=== PATIENT | male | born 1970 | race Caucasian/White ===

== ENCOUNTER 2018-08-04 03:13 | Inpatient (IN) | payer BC, OTHER ==
[2018-08-04 03:49] LABS: Urine Blood NEGATIVE (NEG); Urine Glucose NEGATIVE (NEG); Urine Protein NEGATIVE (NEG); Urine Specific Gravity 1.015 (1.005-1.030); Urine pH 5.5 (5.0-7.0)
[2018-08-04] MEDS ORDERED: KETOROLAC 30 MG/ML INJ ONE (04:54)
[2018-08-04 05:04] LABS: Absolute Lymphocytes (CBC) 1.5 K/uL (0.7-4.9); Absolute Monocytes 0.5 K/uL (0.1-1.3); Absolute Neutrophil 0.8 K/uL (1.8-8.0); Basophils % 2.2 % (0-1.3); Eosinophils % 8.6 % (0-4.4); Hematocrit 36.6 % (39.6-49.0); Lymphocytes % 46.8 % (15.3-44.8); MCH 31.7 pg (27.0-35.0); MCV 87.4 fL (80-100); MPV 7.6 fL (7.6-11.3); Monocytes % 15.4 % (3.3-12.3); RBC Red Blood Cell Count 4.18 M/uL (4.33-5.43)
[2018-08-04 05:21] LABS: Albumin 3.7 g/dL (3.4-5.0); Alkaline Phosphatase 64 U/L (45-117); BUN Blood Urea Nitrogen 6 mg/dL (7-18); Bicarbonate 26 mmol/L (21-32); Bilirubin Total 0.8 mg/dL (0.2-1.0); Glucose Level 98 mg/dL (74-106); Lipase 172 U/L (73-393); Potassium 3.6 mmol/L (3.5-5.1); Sodium Level 126 mmol/L (136-145)
[2018-08-04 05:22] LABS: ALT/SGPT 319 U/L (12-78); AST/SGOT 448 U/L (15-37)
[2018-08-04] MEDS ORDERED: NA CHLORIDE 0.9% 50 ML IV ONE (05:27)
[2018-08-04] MEDS ORDERED: CEFTRIAXONE 1000 MG/VIAL ONE (05:27)
[2018-08-04] MEDS ORDERED: NA CHLORIDE 0.9% 1,000 ML ONE (07:57)
--- NOTE | 2018-08-04 08:15 | ER ---
Nurse's Notes [facility] Name: Sahil Meehan Age: 48 yrs Sex: Male : 1970 Arrival Date: 08/04/2018 Time: 03:14 Bed 14 Private MD: Diagnosis: Hypo-osmolality and hyponatremia;Flank pain;Alcohol abuse with intoxication;Liver disease, unspecified Presentation: 08/04 03:22 Presenting complaint: Patient states: Sudden right flank pain since this morning. cc3 Transition of care: patient was not received from another setting of care. Onset of symptoms was August 04, 2018. Risk Assessment: Do you want to hurt yourself or someone else? Patient reports no desire to harm self or others. Initial Sepsis Screen: Does the patient meet any 2 criteria? No. Patient's initial sepsis screen is negative. Does the patient have a suspected source of infection? No. Patient's initial sepsis screen is negative. Care prior to arrival: None. 03:22 Method Of Arrival: Ambulatory cc3 03:22 Acuity: HILDA 3 cc3 Historical: - Allergies: 03:22 No Known Allergies; cc3 - Home Meds: 03:22 None [Active]; cc3 - PMHx: 03:22 None; cc3 - PSHx: 03:22 None; cc3 - Immunization history:: Adult Immunizations not up to date. - Social history:: Smoking status: Patient/guardian denies using tobacco, never smoked. - Ebola Screening: : No symptoms or risks identified at this time. Screenin:22 Abuse screen: Denies threats or abuse. Denies injuries from another. Nutritional cc3 screening: No deficits noted. Tuberculosis screening: No symptoms or risk factors identified. Fall Risk Ambulatory Aid- None/Bed Rest/Nurse Assist (0 pts). Gait- Normal/Bed Rest/Wheelchair (0 pts) Mental Status- Oriented to own ability (0 pts). Assessment: 03:22 General: Appears in no apparent distress. uncomfortable, Behavior is cooperative. Pain: cc3 Complains of pain in right lower quadrant and right flank Pain currently is 10 out of 10 on a pain scale. Quality of pain is described as aching, Pain began suddenly. Neuro: Level of Consciousness is awake, alert, obeys commands, Oriented to person, place, time, situation, Appropriate for age. Cardiovascular: Denies chest pain. Respiratory: Airway is patent Respiratory effort is even, unlabored, Respiratory pattern is regular, symmetrical. GI: Abdomen is round non-distended. : No signs and/or symptoms were reported regarding the genitourinary system. EENT: No signs and/or symptoms were reported regarding the EENT system. Derm: No signs and/or symptoms reported regarding the dermatologic system. Musculoskeletal: Circulation, motion, and sensation intact. Range of motion: intact in all extremities. 04:30 Reassessment: Patient appears in no apparent distress at this time. Patient and/or cc3 family updated on plan of care and expected duration. Pain level reassessed. Patient is alert, oriented x 3, equal unlabored respirations, skin warm/dry/pink. 05:53 Reassessment: Patient appears in no apparent distress at this time. Patient and/or cc3 family updated on plan of care and expected duration. Pain level reassessed. Patient is alert, oriented x 3, equal unlabored respirations, skin warm/dry/pink. Patient came back from CT scan department. 06:40 Reassessment: Patient appears in no apparent distress at this time. Patient and/or cc3 family updated on plan of care and expected duration. Pain level reassessed. Patient is alert, oriented x 3, equal unlabored respirations, skin warm/dry/pink. 07:00 Reassessment: Handed over to morning shift for continuity of care. cc3 07:51 Reassessment: Patient appears in no apparent distress at this time. Patient and/or tw2 family updated on plan of care and expected duration. Pain level reassessed. Patient is alert, oriented x 3, equal unlabored respirations, skin warm/dry/pink. 07:52 Reassessment: Dr. Reyes at bedside at this time. tw2 09:58 Reassessment: pt is in xray at this time, unavailable for vs. tw2 Vital Signs: 03:22 BP 133 / 98; Pulse 90; Resp 20; Temp 97.9(O); Pulse Ox 100% on R/A; Weight 81.65 kg cc3 (R); Height 5 ft. 9 in. (175.26 cm) (R); Pain 10/10; 04:15 BP 125 / 83; Pulse 78; Resp 18 S; Pulse Ox 97% on R/A; cc3 05:00 BP 135 / 90; Pulse 71; Resp 18 S; Pulse Ox 99% on R/A; cc3 06:15 BP 153 / 94; Pulse 77; Resp 18 S; Pulse Ox 100% on R/A; Pain 7/10; cc3 07:51 BP 152 / 96; Pulse 80; Resp 17; Pulse Ox 100% on R/A; tw2 03:22 Body Mass Index 26.58 (81.65 kg, 175.26 cm) cc3 ED Course: 03:14 Patient arrived in ED. ds1 03:22 Gardenia Stovall is Primary Nurse. cc3 03:22 Arm band placed on right wrist. cc3 03:22 Patient has correct armband on for positive identification. Placed in gown. Bed in low cc3 position. Call light in reach. Side rails up X 1. Pulse ox on. NIBP on. 03:35 Triage completed. cc3 03:55 Yoni Calderón MD is Attending Physician. ps1 04:40 Inserted saline lock: 20 gauge in right antecubital area, using aseptic technique. cc3 Blood collected. 05:46 CT completed. Patient tolerated procedure well. Patient moved to CT via stretcher. eh Patient moved back from CT. 05:54 CT Abd/Pelvis - W/Contrast In Process Unspecified. EDMS 07:00 Report given to SARMAD Wan. cc3 07:10 Soco Johnston RN is Primary Nurse. tw2 07:39 Attending Physician role handed off by Yoni Calderón MD kdr 07:39 Deonte Reyes MD is Attending Physician. kdr 08:11 Scot Flores DO is Hospitalizing Provider. kdr 09:27 Lab(s) recollected, by me, sent to lab. Urine collected: clean catch specimen, cloudy. gm 09:42 Report received from attempted to call report, was told SARMAD Felton will call me back. tw2 10:12 No provider procedures requiring assistance completed. Patient admitted, IV remains in tw2 place. Administered Medications: 04:45 Drug: TORadol 30 mg Route: IVP; Site: right antecubital; cc3 06:00 Follow up: Response: No adverse reaction; Pain is decreased cc3 05:20 Drug: Rocephin - (cefTRIAXone) 1 grams Route: IVPB; Infused Over: 30 mins; Site: right cc3 antecubital; 06:00 Follow up: Response: No adverse reaction; IV Status: Completed infusion; IV Intake: [id number] 07:50 Drug: NS 0.9% 1000 ml Route: IV; Rate: 1 bolus; Site: right antecubital; tw2 10:13 Follow up: IV Status: Infusion continued upon admission tw2 Intake: 06:00 IV: 50ml; Total: 50ml. cc3 Outcome: 08:13 Decision to Hospitalize by Provider. kdr 10:12 Admitted to Med/surg accompanied by tech, via wheelchair, room 425, Report called to tw2 SARMAD Mccoy 10:12 Condition: stable 10:12 Instructed on the need for admit. 10:29 Patient left the ED. tw2 Signatures: Dispatcher [employer] EDMS Deonte Reyes MD MD kdr Hagler, Ervin eh Sanford, Demi ds1 Soco Johnston RN RN tw2 Yoni Calderón MD MD ps1 Cordel, Charlene cc3 Lesley Juarez gm Corrections: (The following items were deleted from the chart) 05:56 05:53 Reassessment: Patient came back from CT scan department. 3 cc3 06:42 06:15 BP 153 / 94; Pulse 77bpm; Resp 18bpm; Spontaneous; Pulse Ox 100% RA; 3 cc3 09:59 09:58 Reassessment: pt is in xray at this time tw2 tw2
--- NOTE | 2018-08-04 08:15 | EDPHYS ---
Physician Documentation [facility] Name: Sahil Meehan Age: 48 yrs Sex: Male : 1970 Arrival Date: 08/04/2018 Time: 03:14 Bed 14 Private MD: ED Physician Deonte Reyes HPI: 08/04 04:31 This 48 yrs old Male presents to ER via Ambulatory with complaints of R Side ps1 Pain. 04:31 Onset was 130 am. RLQ. Rated as moderate to severe. No fever. Radiating to flank. Hx of ps1 ETOH abuse. Has some nausea. Upset stomach 2 days ago. . Historical: - Allergies: 03:22 No Known Allergies; cc3 - Home Meds: 03:22 None [Active]; cc3 - PMHx: 03:22 None; cc3 - PSHx: 03:22 None; cc3 - Immunization history:: Adult Immunizations not up to date. - Social history:: Smoking status: Patient/guardian denies using tobacco, never smoked. - Ebola Screening: : No symptoms or risks identified at this time. ROS: 04:31 Constitutional: Negative for fever, chills, and weight loss, Eyes: Negative for injury, ps1 pain, redness, and discharge, Cardiovascular: Negative for chest pain, palpitations, and edema, Respiratory: Negative for shortness of breath, cough, wheezing, and pleuritic chest pain, MS/Extremity: Negative for injury and deformity, Skin: Negative for injury, rash, and discoloration, Neuro: Negative for headache, weakness, numbness, tingling, and seizure. 04:31 Abdomen/GI: Positive for abdominal pain, nausea. Exam: 04:31 Constitutional: This is a well developed, well nourished patient who is awake, alert, ps1 and in no acute distress. Head/Face: Normocephalic, atraumatic. Eyes: Pupils equal round and reactive to light, extra-ocular motions intact. Lids and lashes normal. Conjunctiva and sclera are non-icteric and not injected. Chest/axilla: Normal chest wall appearance and motion. Nontender with no deformity. No lesions are appreciated. Cardiovascular: Regular rate and rhythm. No gallops, murmurs, or rubs. Normal PMI, no JVD. No pulse deficits. Respiratory: Lungs have equal breath sounds bilaterally, clear to auscultation and percussion. No rales, rhonchi or wheezes noted. No increased work of breathing, no retractions or nasal flaring. Skin: Warm, dry with normal turgor. Normal color with no rashes, no lesions, and no evidence of cellulitis. MS/ Extremity: Pulses equal, no cyanosis. Neurovascular intact. Full, normal range of motion. Neuro: Awake and alert, GCS 15, oriented to person, place, time, and situation. Cranial nerves II-XII grossly intact. Sensory grossly intact. Psych: Awake, alert, with orientation to person, place and time. Behavior, mood, and affect are within normal limits. 04:31 Abdomen/GI: Inspection: abdomen appears normal, Bowel sounds: normal, Palpation: moderate abdominal tenderness, in the right lower quadrant, Indicators: McBurney's point is tender. Vital Signs: 03:22 BP 133 / 98; Pulse 90; Resp 20; Temp 97.9(O); Pulse Ox 100% on R/A; Weight 81.65 kg cc3 (R); Height 5 ft. 9 in. (175.26 cm) (R); Pain 10/10; 04:15 BP 125 / 83; Pulse 78; Resp 18 S; Pulse Ox 97% on R/A; cc3 05:00 BP 135 / 90; Pulse 71; Resp 18 S; Pulse Ox 99% on R/A; cc3 06:15 BP 153 / 94; Pulse 77; Resp 18 S; Pulse Ox 100% on R/A; Pain 7/10; cc3 07:51 BP 152 / 96; Pulse 80; Resp 17; Pulse Ox 100% on R/A; tw2 03:22 Body Mass Index 26.58 (81.65 kg, 175.26 cm) cc3 MDM: 04:40 Patient medically screened. ps1 08:14 Data reviewed: vital signs, nurses notes, lab test result(s), radiologic studies. kdr Counseling: I had a detailed discussion with the patient and/or guardian regarding: the historical points, exam findings, and any diagnostic results supporting the discharge/admit diagnosis, lab results, radiology results, the need for further work-up and treatment in the hospital. Physician consultation: Scot Flores DO. Admission orders: after a detailed discussion of the patient's condition and case, the admit orders are written by me. ED course: D/w Scottyskylar Novak, Case Management: agree to obs admission. 08/04 03:34 Order name: Urine Dipstick--Ancillary (enter results); Complete Time: 04:54 ms 08/04 04:31 Order name: CBC with Diff; Complete Time: 05:08 ps1 08/04 04:31 Order name: Lipase; Complete Time: 05:23 ps1 08/04 04:31 Order name: CMP; Complete Time: 05:23 ps1 08/04 04:31 Order name: ETOH Level; Complete Time: 05:21 ps1 08/04 08:11 Order name: Urine Sodium Random kdr 08/04 04:31 Order name: IV Saline Lock; Complete Time: 04:44 ps1 08/04 04:31 Order name: Labs collected and sent; Complete Time: 04:45 ps1 08/04 04:31 Order name: CT Abd/Pelvis - W/Contrast; Complete Time: 10:40 ps1 08/04 08:11 Order name: Urine Osmolality; Complete Time: 10:40 kdr 08/04 08:11 Order name: Osmolality, Serum; Complete Time: 10:40 kdr Administered Medications: 04:45 Drug: TORadol 30 mg Route: IVP; Site: right antecubital; cc3 06:00 Follow up: Response: No adverse reaction; Pain is decreased cc3 05:20 Drug: Rocephin - (cefTRIAXone) 1 grams Route: IVPB; Infused Over: 30 mins; Site: right cc3 antecubital; 06:00 Follow up: Response: No adverse reaction; IV Status: Completed infusion; IV Intake: [id number] 07:50 Drug: NS 0.9% 1000 ml Route: IV; Rate: 1 bolus; Site: right antecubital; tw2 10:13 Follow up: IV Status: Infusion continued upon admission tw2 Disposition: 08/04/18 08:13 Hospitalization ordered by Scot Flores for Observation. Preliminary diagnosis are Hypo-osmolality and hyponatremia, Flank pain, Alcohol abuse with intoxication, Liver disease, unspecified. - Bed requested for Telemetry/MedSurg (observation). - Status is Observation. tw2 - Condition is Fair. - Problem is new. - Symptoms are unchanged. UTI on Admission? No Signatures: Dispatcher [employer] EDMS Deonte Reyes MD MD kdr Soco Johnston RN RN tw2 Yoni Calderón MD MD [facility] Deborah Fine Charlene cc3 Corrections: (The following items were deleted from the chart) 09:17 08:13 Hospitalization Ordered by Scot Flores DO for Observation. Preliminary eb diagnosis is Hypo-osmolality and hyponatremia; Flank pain; Alcohol abuse with intoxication; Liver disease, unspecified. Bed requested for Telemetry/MedSurg (observation). Status is Observation. Condition is Fair. Problem is new. Symptoms are unchanged. UTI on Admission? No. kdr 10:29 09:17 08/04/2018 08:13 Hospitalization Ordered by Scot Flores DO for Observation. tw2 Preliminary diagnosis is Hypo-osmolality and hyponatremia; Flank pain; Alcohol abuse with intoxication; Liver disease, unspecified. Bed requested for Telemetry/MedSurg (observation). Status is Observation. Condition is Fair. Problem is new. Symptoms are unchanged. UTI on Admission? No. eb
[2018-08-04] MEDS ORDERED: ACETAMINOPHEN 500 MG TAB PO PRN (08:54)
[2018-08-04] MEDS ORDERED: TRAMADOL HCL 50 MG TAB PO PRN (08:54)
[2018-08-04] MEDS ORDERED: HYDROCODONE/APAP 7.5/325 MG TAB PO PRN (08:54)
[2018-08-04] MEDS ORDERED: ONDANSETRON 4 MG/2 ML VIAL IV PRN (08:54)
--- NOTE | 2018-08-04 09:33 | RAD REPORT ---
EXAM DESCRIPTION: CT - Abdomen Pelvis W Contrast - 08/04/2018 5:54 am CLINICAL HISTORY: Right-sided abdominal pain, right lower flank pain A preliminary report was provided at the time of the study and reviewed prior to final report. COMPARISON: None. TECHNIQUE: Biphasic, helical CT imaging of the abdomen and pelvis was performed following 100 ml non -ionic IV contrast. Oral contrast was given. All CT scans are performed using dose optimization technique as appropriate and may include automated exposure control or mA/KV adjustment according to patient size. FINDINGS: No suspicious findings in the lung bases. The liver, spleen, and pancreas show no suspicious findings. Gallbladder and biliary tree are also wi thout suspicious finding. Symmetric renal function is seen with no hydronephrosis or suspicious renal mass. No pyelonephritis o r acute renal parenchymal process. No perinephric stranding. Urinary bladder is contracted. This accentuates wall thickness. However, bladder wall irregular thick ening is present. There is a mild congestion or edema near the base of the bladder. Seminal vesicles are normal. Prostate gland is not abnormally enlarged. Bladder finding could represent cystitis or bl adder wall hypertrophy from a urethral outlet obstruction. Malignancy of the bladder is not excluded. No dilated bowel loops or bowel wall thickening. No acute GI process identifiable. No free air, free fluid or inflammatory stranding. No hernia, mass or bulky lymphadenopathy. No adrenal abnormality. No suspicious bony findings. IMPRESSION: Abnormal circumferential wall thickening of the urinary bladder without prostatic hypert rophy. No hydronephrosis or acute renal or ureteral finding. Bladder wall thickening could represent hypertrophy from outlet obstruction or cystitis. Malignancy o f the urinary bladder is not excluded. No abnormal lymphadenopathy.
--- NOTE | 2018-08-04 10:36 | RAD REPORT ---
EXAM DESCRIPTION: US - Urinary Bladder - 08/04/2018 9:48 am CLINICAL HISTORY: Abnormal CT study, bladder mass or wall thickening COMPARISON: CT study August 04 FINDINGS: Urinary bladder is mostly contracted. Circumferential irregular wall thickness is identifi able. No one focal area of mass or asymmetric wall thickening identifiable. No adjacent free fluid. IMPRESSION: Circumferential irregular wall thickening of the contracted urinary bladder. Findings match the CT study with no one area of clearly defined mass or asymmetric wall thickening. Differential considerations remain cystitis, muscle hypertrophy due to outlet obstruction or circumfe rential bladder wall mass.
--- NOTE | 2018-08-04 10:41 | RAD REPORT ---
EXAM DESCRIPTION: Ana Pineda And Brynn (2 Views)08/04/2018 10:24 am CLINICAL HISTORY: Shortness of breast COMPARISON: None FINDINGS: The lungs appear clear of acute infiltrate. The heart is normal size. Mediastinum is mild ly prominent. IMPRESSION: . Mild prominence of the mediastinum may represent a thyroid goiter, mediastinal fat, v essels or lymphadenopathy. Follow-up chest film in 2 months recommended for re-evaluation.
--- NOTE | 2018-08-04 10:44 | RAD REPORT ---
EXAM DESCRIPTION: RAD - Pelvis - 08/04/2018 10:25 am CLINICAL HISTORY: Pelvic pain FINDINGS: No fracture or dislocation is seen. Contrast from a recent CAT scan is present within the bladder and distal right ureter. Bladder wall i s thickened. Mild osteoarthritis involves the hips.
--- NOTE | 2018-08-04 11:02 | RAD REPORT ---
EXAM DESCRIPTION: RAD - Spine Lumbar W obliques - 08/04/2018 10:25 am CLINICAL HISTORY: Back pain, radiculopathy COMPARISON: None. FINDINGS: A five-view lumbar spine examination was performed. Lumbar bodies are normal in height and alignment. No fracture or acute bony process seen. No disc space narrowing. No pars defects suspecte d. Minimal facet joint degenerative change present. Oblique view show no suspicious finding. Contrast is present in the system from prior CT study. IMPRESSION: No acute vertebral body, disc or facet abnormality. Concerns for disc herniation, central canal abnormality or occult bone process could be addressed wit h MR imaging.
[2018-08-04 12:23] VITALS: BMI 26.6
[2018-08-04] MEDS ORDERED: POTASSIUM 25 MEQ EFFERV TAB PO ONE (12:38)
[2018-08-04 13:24] LABS: Thyroid Stimulating Hormone 1.33 uIU/mL (0.360-3.740)
[2018-08-04] MEDS: NA CHLORIDE 0.9% 1,000 ML IV SCH ×2 (13:43→21:57)
[2018-08-04 14:19] LABS: Urine Appearance CLEAR; Urine Bilirubin NEGATIVE (NEG); Urine Blood NEGATIVE (NEG); Urine Color YELLOW; Urine Glucose NEGATIVE (NEG); Urine Protein NEGATIVE (NEG); Urine Specific Gravity >=1.030 (1.005-1.030)
[2018-08-04 14:20] LABS: Urine Microscopic Reflex NO UMIC
[2018-08-04 14:26] LABS: Barbiturates NEGATIVE (NEGATIVE); Benzodiazepines NEGATIVE (NEGATIVE); Cocaine NEGATIVE (NEGATIVE); METHAMPHETAM NEGATIVE (NEGATIVE); Methadone NEGATIVE (NEGATIVE); Opiates NEGATIVE (NEGATIVE); Phencyclidine NEGATIVE (NEGATIVE); THC Cannibis NEGATIVE (NEGATIVE)
[2018-08-04 15:43] LABS: BUN Blood Urea Nitrogen 5 mg/dL (7-18); Bicarbonate 26 mmol/L (21-32); Glucose Level 94 mg/dL (74-106); Potassium 4.2 mmol/L (3.5-5.1); Sodium Level 126 mmol/L (136-145)
[2018-08-04] MEDS ORDERED: ENOXAPARIN 40 MG/0.4 ML SQ SCH (17:00)
--- NOTE | 2018-08-04 17:31 | P.HP ---
Certification for Inpatient Patient admitted to: Observation With expected LOS: <2 Midnights Patient will require the following post-hospital care: None Practitioner: I am a practitioner with admitting privileges, knowledge of patient current condition, hospital course, and medical plan of care. Services: Services provided to patient in accordance with Admission requirements found in Title 42 Section 412.3 of the Code of Federal Regulations Patient History Date of Service: 08/04/18 Primary Care Provider: None Reason for admission: Right lower quadrant pain History of Present Illness: 48-year-old male presented emergency room with right lower quadrant abdominal pain. Pain was mainly near the superior iliac region. This started about 1:30 am last night. Over the weekend he reported an upset stomach. Otherwise he denied any nausea, vomiting, diarrhea or constipation. He reports no urinary complaints. He denies any chest pain or shortness of breath. Pain was severe to the point were he came to the emergency room for further evaluation. In the ER patient evaluated. White count 3.1, hemoglobin 13.3. Sodium 126, potassium 3.6, BUN of 6, creatinine 0.8 with a GFR greater than 90. Glucose 98. Total bilirubin unremarkable. Lipase unremarkable. LFTs were elevated with an AST of 449. ALT of 319. Urinalysis unremarkable. Alcohol level was elevated. CT scan showed abnormal circumferential wall thickening of the urinary bladder without prostate hypertrophy. No hydronephrosis noted. Due to the nature of his findings the patient was admitted for further evaluation. When I saw the patient ER, pain improved. Patient admits to alcohol use. Patient reports no underlying previous surgeries or major medical problems. Allergies No Known Allergies Allergy (Unverified 08/04/18 09:18) Home medications list reviewed: Yes Home Medications: NK [No Home Meds] 08/04/18 - Past Medical/Surgical History Has patient received pneumonia vaccine in the past: No Diabetic: No -: Alcohol abuse Past Surgical History: Patient denies surgical history Psychosocial/ Personal History: The patient is single. He has no children. He currently works - Family History Family History: Reviewed- Non-Contributory - Social History Smoking Status: Never smoker Alcohol use: Yes CD- Drugs: No Caffeine use: Yes Place of Residence: Home Review of Systems General: As per HPI Eyes: Unremarkable ENT: Unremarkable Respiratory: Unremarkable Cardiovascular: Unremarkable Gastrointestinal: Abdominal Pain, As per HPI Genitourinary: As per HPI Musculoskeletal: Unremarkable Integumentary: Unremarkable Neurological: Unremarkable Lymphatics: Unremarkable Physical Examination - Vital Signs Temperature: 98.5 F Blood Pressure: 159/79 Pulse: 84 Respirations: 18 Pulse Ox (%): 100 - Physical Exam General: Alert, In no apparent distress, Oriented x3, Cooperative HEENT: Atraumatic, Normocephalic, PERRLA, Other (Dry mucous membranes), EOMI Neck: Supple, No Thyromegaly Respiratory: Clear to auscultation bilaterally, Normal air movement Cardiovascular: Normal pulses, Regular rate/rhythm Gastrointestinal: Normal bowel sounds, Soft and benign, Non-distended, No masses , No rebound, No guarding, Tenderness (Mild pain to the right lower quadrant near the superior iliac region) Musculoskeletal: No erythema, No tenderness, No warmth Integumentary: No tenderness/swelling, No erythema, No warmth, No cyanosis Neurological: Normal speech, Normal strength at 5/5 x4 extr, Normal tone, Normal affect - Studies Laboratory Data (last 24 hrs) 08/04/18 04:40: Sodium 126 L, Potassium 3.6, BUN 6 L, Creatinine 0.80, Glucose 98, Total Bilirubin 0.8, AST 448 H*, ALT 319 H*, Alkaline Phosphatase 64, Lipase 172 08/04/18 04:40: WBC 3.1 L, Hgb 13.3 L, Hct 36.6 L, Plt Count 162 Assessment and Plan - Plan Impression: Right lower quadrant abdominal pain with noted abnormal CT scan showing circumferential wall thickening of the bladder Hyponatremia likely dehydration related Alcohol abuse with noted elevated alcohol level Elevated liver function possibly related to alcohol use Plan: Right lower quadrant abdominal pain with noted abnormal CT scan showing circumferential wall thickening of the bladder: CT scan reviewed. Will check bladder ultrasound to further assess. Patient denies any significant urinary complaints. Urinalysis unremarkable. Will continue with IV fluids. Will provide medication for pain. Workup can possibly be further evaluated as an outpatient as the patient may require cystoscopy by Urology. Hyponatremia likely dehydration related: Will start IV fluids. Will monitor electrolytes and adjust. Alcohol abuse with noted elevated alcohol level: Will monitor closely. Alcohol cessation addressed in detail. Elevated liver function possibly related to alcohol use: CT scan revealed no abnormality to the liver. No biliary dysfunction. Will send lab for hepatitis and HIV. Alcohol cessation addressed in detail. This can be further evaluated as an outpatient with GI. Discharge Plan: Home Plan to discharge in: 24 Hours - Advance Directives Does patient have a Living Will: Yes Does patient have a Durable POA for Healthcare: No - Code Status/Comfort Care Code Status Assessed: Yes (Patient full code) Time Spent Managing Pts Care (In Minutes): 55
[2018-08-05] MEDS: NA CHLORIDE 0.9% 1,000 ML IV SCH (05:37)
[2018-08-05 06:00] LABS: Absolute Monocytes 0.4 K/uL (0.1-1.3); Absolute Neutrophil 1.2 K/uL (1.8-8.0); Basophils % 1.3 % (0-1.3); Eosinophils % 7.5 % (0-4.4); Hematocrit 35.4 % (39.6-49.0); Lymphocytes % 36.7 % (15.3-44.8); MCH 31.6 pg (27.0-35.0); MCV 87.6 fL (80-100); MPV 7.4 fL (7.6-11.3); RBC Red Blood Cell Count 4.04 M/uL (4.33-5.43)
[2018-08-05 06:21] LABS: ALT/SGPT 262 U/L (12-78); AST/SGOT 323 U/L (15-37); Albumin 3.3 g/dL (3.4-5.0); Alkaline Phosphatase 66 U/L (45-117); BUN Blood Urea Nitrogen 6 mg/dL (7-18); Bicarbonate 26 mmol/L (21-32); Bilirubin Total 1.2 mg/dL (0.2-1.0); Glucose Level 92 mg/dL (74-106); Magnesium 1.7 mg/dL (1.8-2.4); Potassium 4.2 mmol/L (3.5-5.1); Protein, Total 6.3 g/dL (6.4-8.2); Sodium Level 127 mmol/L (136-145)
[2018-08-05] MEDS ORDERED: PANTOPRAZOLE 40MG TABLET PO SCH (06:30)
[2018-08-05] MEDS ORDERED: MAGNESIUM SULFATE 1 gm IVPB 1 GM/100 ML BAG IV ONE (07:08)
[2018-08-05 09:38] VITALS: O2SAT 100
[2018-08-05] MEDS: SODIUM CHLORIDE 1 GM TAB PO SCH ×2 (10:56→17:45)
[2018-08-05 12:48] LABS: BUN Blood Urea Nitrogen 5 mg/dL (7-18); Bicarbonate 27 mmol/L (21-32); Glucose Level 103 mg/dL (74-106); Sodium Level 127 mmol/L (136-145)
--- NOTE | 2018-08-05 14:27 | P.DS ---
Admission Date: 08/05/18 Discharge Date: 08/05/18 Primary Care Provider: None Disposition: ROUTINE DISCHARGE Discharge Condition: GOOD Reason for Admission: Right lower quadrant pain Consultations: none Procedures: CT scan: COMPARISON: None. TECHNIQUE: Biphasic, helical CT imaging of the abdomen and pelvis was performed following 100 ml non-ionic IV contrast. Oral contrast was given. All CT scans are performed using dose optimization technique as appropriate and may include automated exposure control or mA/KV adjustment according to patient size. FINDINGS: No suspicious findings in the lung bases. The liver, spleen, and pancreas show no suspicious findings. Gallbladder and biliary tree are also without suspicious finding. Symmetric renal function is seen with no hydronephrosis or suspicious renal mass. No pyelonephritis or acute renal parenchymal process. No perinephric stranding. Urinary bladder is contracted. This accentuates wall thickness. However, bladder wall irregular thickening is present. There is a mild congestion or edema near the base of the bladder. Seminal vesicles are normal. Prostate gland is not abnormally enlarged. Bladder finding could represent cystitis or bladder wall hypertrophy from a urethral outlet obstruction. Malignancy of the bladder is not excluded. No dilated bowel loops or bowel wall thickening. No acute GI process identifiable. No free air, free fluid or inflammatory stranding. No hernia, mass or bulky lymphadenopathy. No adrenal abnormality. No suspicious bony findings. IMPRESSION: Abnormal circumferential wall thickening of the urinary bladder without prostatic hypertrophy. No hydronephrosis or acute renal or ureteral finding. Bladder wall thickening could represent hypertrophy from outlet obstruction or cystitis. Malignancy of the urinary bladder is not excluded. No abnormal lymphadenopathy. Bladder US: COMPARISON: CT study August 04 FINDINGS: Urinary bladder is mostly contracted. Circumferential irregular wall thickness is identifiable. No one focal area of mass or asymmetric wall thickening identifiable. No adjacent free fluid. IMPRESSION: Circumferential irregular wall thickening of the contracted urinary bladder. Findings match the CT study with no one area of clearly defined mass or asymmetric wall thickening. Differential considerations remain cystitis, muscle hypertrophy due to outlet obstruction or circumferential bladder wall mass. Pelvic xray: FINDINGS: No fracture or dislocation is seen. Contrast from a recent CAT scan is present within the bladder and distal right ureter. Bladder wall is thickened. Mild osteoarthritis involves the hips. Lumbar xray: COMPARISON: None. FINDINGS: A five-view lumbar spine examination was performed. Lumbar bodies are normal in height and alignment. No fracture or acute bony process seen. No disc space narrowing. No pars defects suspected. Minimal facet joint degenerative change present. Oblique view show no suspicious finding. Contrast is present in the system from prior CT study. IMPRESSION: No acute vertebral body, disc or facet abnormality. Concerns for disc herniation, central canal abnormality or occult bone process could be addressed with MR imaging. CXR: COMPARISON: None FINDINGS: The lungs appear clear of acute infiltrate. The heart is normal size. Mediastinum is mildly prominent. IMPRESSION: . Mild prominence of the mediastinum may represent a thyroid goiter , mediastinal fat, vessels or lymphadenopathy. Follow-up chest film in 2 months recommended for re-evaluation. Medical Problem List: Right lower quadrant abdominal pain with noted abnormal CT scan showing circumferential wall thickening of the bladder likely noninfectious cystitis Hyponatremia likely dehydration related Alcohol abuse with noted elevated alcohol level Elevated liver function possibly related to alcohol use Mild osteoarthritis of the hips Mild prominence to the mediastinum on x-ray Brief History of Present Illness: 48-year-old male presented emergency room with right lower quadrant abdominal pain. Pain was mainly near the superior iliac region. This started about 1:30 am last night. Over the weekend he reported an upset stomach. Otherwise he denied any nausea, vomiting, diarrhea or constipation. He reports no urinary complaints. He denies any chest pain or shortness of breath. Pain was severe to the point were he came to the emergency room for further evaluation. In the ER patient evaluated. White count 3.1, hemoglobin 13.3. Sodium 126, potassium 3.6, BUN of 6, creatinine 0.8 with a GFR greater than 90. Glucose 98. Total bilirubin unremarkable. Lipase unremarkable. LFTs were elevated with an AST of 449. ALT of 319. Urinalysis unremarkable. Alcohol level was elevated. CT scan showed abnormal circumferential wall thickening of the urinary bladder without prostate hypertrophy. No hydronephrosis noted. Due to the nature of his findings the patient was admitted for further evaluation. When I saw the patient ER, pain improved. Patient admits to alcohol use. Patient reports no underlying previous surgeries or major medical problems. Hospital Course: Patient presented with right lower quadrant abdominal pain. Patient evaluated in the emergency room. CT scan showed no significant abdominal abnormality except circumferential wall thickening of the bladder. Patient was admitted for further evaluation. Patient found to have elevated liver function tests, alcohol level elevation, hyponatremia. Patient was given IV fluids. Lab was monitored. Other workup included bladder ultrasound, x-rays of the lumbar spine /chest/pelvis. Mild arthritis noted to the pelvic region. Chest x-ray showed mild prominence to the mediastinum. Bladder ultrasound shows circumferential wall thickening. Patient without urinary complaints. Hyponatremia likely hypovolemic related to alcohol abuse. Patient given salt tablets. Symptoms resolved Overnite. No significant abnormalities including nausea, vomiting, diarrhea or constipation noted at discharge. Patient tolerating diet. Recommendation at discharge is to discontinue alcohol. Alcohol cessation addressed in detail. Patient plans to quit. At discharge he will continue with salt tablets twice daily. Recommendation to recheck lab-BMP in 1 week to monitor his progress. If hyponatremia persists the patient will need to be further evaluated as an outpatient with nephrology. Case was discusse with nephrology. Patient can follow up with nephrology in 1 week to follow up this hospitalization and continue his care. Recommendation is for the patient to also follow up with urology as an outpatient to further evaluate the wall thickening of the bladder. Patient will likely require cystoscopy to further address. Patient will establish care locally within 1 week to further address multiple issues. Patient to increase fluid intake. Recommendation is to recheck chest x-ray AP and lateral in 1-2 months to monitor resolution of mild prominence to the mediastinum. Patient plans to establish care locally with a PCP to continue his care and follow up this hospitalization. Patient with elevated liver function test. CT scan revealed no abnormality to the liver or biliary system. HIV and hepatitis panel obtained. Elevated liver function likely related to alcohol use. Patient counseled on alcohol cessation. Patient plans to quit. Recommendation is for the patient follow up on hepatitis panel and HIV with PCP within 1 week to further address. Vital Signs/Physical Exam: Temp Pulse Resp BP Pulse Ox 97.9 F 66 18 140/90 100 08/05/18 08:00 08/05/18 08:00 08/05/18 08:00 08/05/18 12:54 08/05/18 08:00 General: Alert, In no apparent distress, Oriented x3, Cooperative HEENT: Atraumatic, Mucous membr. moist/pink Neck: Supple Respiratory: Clear to auscultation bilaterally, Normal air movement Cardiovascular: Normal pulses, Regular rate/rhythm Gastrointestinal: Normal bowel sounds, Soft and benign, Non-distended, No tenderness, No masses, No rebound, No guarding Musculoskeletal: No erythema, No tenderness, No warmth Integumentary: No tenderness/swelling, No erythema, No warmth, No cyanosis Neurological: Normal speech, Normal strength at 5/5 x4 extr, Normal tone, Normal affect Laboratory Data at Discharge: WBC 2.8 K/uL (4.3-10.9) L 08/05/18 05:40 Hgb 12.8 g/dL (13.6-17.9) L 08/05/18 05:40 Hct 35.4 % (39.6-49.0) L 08/05/18 05:40 Plt Count 138 K/uL (152-406) L 08/05/18 05:40 Sodium 127 mmol/L (136-145) L 08/05/18 11:56 Potassium 4.0 mmol/L (3.5-5.1) 08/05/18 11:56 BUN 5 mg/dL (7-18) L 08/05/18 11:56 Creatinine 0.70 mg/dL (0.55-1.3) 08/05/18 11:56 Glucose 103 mg/dL (74-106) 08/05/18 11:56 Magnesium 1.7 mg/dL (1.8-2.4) L 08/05/18 05:40 Total Bilirubin 1.2 mg/dL (0.2-1.0) H 08/05/18 05:40 AST 323 U/L (15-37) H* D 08/05/18 05:40 ALT 262 U/L (12-78) H 08/05/18 05:40 Alkaline Phosphatase 66 U/L (45-117) 08/05/18 05:40 Lipase 172 U/L (73-393) 08/04/18 04:40 Home Medications: Sodium Chloride Tab [Sodium Chloride*] 1 gm PO BIDWM #30 tab 08/05/18 New Medications: Sodium Chloride Tab [Sodium Chloride*] 1 gm PO BIDWM #30 tab Patient Discharge Instructions: 1. Patient will establish care with a PCP within 1 week to follow up this hospitalization. 2. Patient presented with right lower quadrant abdominal pain. Patient evaluated in the emergency room. CT scan showed no significant abdominal abnormality except circumferential wall thickening of the bladder. Patient was admitted for further evaluation. Patient found to have elevated liver function tests, alcohol level elevation, hyponatremia. Patient was given IV fluids. Lab was monitored. Other workup included bladder ultrasound, x-rays of the lumbar spine/chest/pelvis. Mild arthritis noted to the pelvic region. Chest x-ray showed mild prominence to the mediastinum. Bladder ultrasound shows circumferential wall thickening. Patient without urinary complaints. Hyponatremia likely hypovolemic related to alcohol abuse. Patient given salt tablets. Symptoms resolved Overnite. No significant abnormalities including nausea, vomiting, diarrhea or constipation noted at discharge. Patient tolerating diet. Recommendation at discharge is to discontinue alcohol. Alcohol cessation addressed in detail. Patient plans to quit. At discharge he will continue with salt tablets twice daily. Recommendation to recheck lab-BMP in 1 week to monitor his progress. If hyponatremia persists the patient will need to be further evaluated as an outpatient with nephrology. Case was discusse with nephrology. Patient can follow up with nephrology in 1 week to follow up this hospitalization and continue his care. Recommendation is for the patient to also follow up with urology as an outpatient to further evaluate the wall thickening of the bladder. Patient will likely require cystoscopy to further address. Patient will establish care locally within 1 week to further address multiple issues. Patient to increase fluid intake. Recommendation is to recheck chest x-ray AP and lateral in 1-2 months to monitor resolution of mild prominence to the mediastinum. Patient plans to establish care locally with a PCP to continue his care and follow up this hospitalization. 3. Patient with elevated liver function test. CT scan revealed no abnormality to the liver or biliary system. HIV and hepatitis panel obtained. Elevated liver function likely related to alcohol use. Patient counseled on alcohol cessation. Patient plans to quit. Recommendation is for the patient follow up on hepatitis panel and HIV with PCP within 1 week to further address. Diet: Regular Activity: Fall precautions Time spent managing pt's care (in minutes): 55
[2018-08-05 16:55] VITALS: BP 166/99; TEMP 98
[2018-08-06 15:00] LABS: HIV 1/2 Antibody Diff Not indicated.; HIV AG/AB 4TH GEN Non-reactive (Non-reactive)
[2018-08-07 03:03] LABS: HBsAG Nonreactive (Nonreactive)
== END 2018-08-05 18:00 | disposition home or self-care (01) | DRG 690 ==
LOC: ER 03:13 → ERHOLD 08:16 → 4TH 10:04 → OBSVTOIN 08-05 12:08
PROVIDERS: ADMIT Family Medicine; ATTEND Family Medicine
DX: N30.80 Other cystitis without hematuria (principal); E87.1 Hypo-osmolality and hyponatremia; E86.0 Dehydration; R94.5 Abnormal results of liver function studies; M16.0 Bilateral primary osteoarthritis of hip; F10.129 Alcohol abuse with intoxication, unspecified; Y90.5 Blood alcohol level of 100-119 mg/100 ml
CPT/HCPCS: 36415; 71046; 72110; 72170; 74177; 76857; 80048; 80053; 80307; 80320; 81003; 83690; 83735; 83930; 83935; 84145; 84300; 84439; 84443; 85025; 86705; 86803; 87340; 87389; 96361; 96365; 96375; 99285; G0378; J1650; J3475; J7030; Q9967